=== PATIENT | female | born 1965 | race African-American/Black ===

== ENCOUNTER 2016-05-15 11:19 | Outpatient (CLI) ==
[2014-06-13 07:58] VITALS: BMI 35.4
--- NOTE | 2016-05-16 09:05 | MAMMO ---
EXAM: Digital screening mammogram HISTORY: Screening COMPARISON: 12/13/2014 and 06/07/2014 FINDINGS: Digital MLO and CC views of the right and left breast were performed. There are scatter ed fibroglandular densities. There is a 2.7 cm mass in the left lateral breast. There is a 1.3 cm mass in the right inferior medial breast. IMPRESSION: Bilateral breast masses. Diagnostic mammogram and ultrasound recommended for further evaluation. BIRADS category 0, incomplete
== END 2016-05-15 11:20 | disposition home or self-care (01) ==
LOC: RAD 11:19
PROVIDERS: ATTEND Obstetrics & Gynecology Obstetrics
DX: Z12.31 Encounter for screening mammogram for malignant neoplasm of breast (principal)

== ENCOUNTER 2016-05-21 08:52 | Outpatient (CLI) ==
[2014-06-13 07:58] VITALS: BMI 35.4
--- NOTE | 2016-05-21 09:34 | US ---
EXAM: Bilateral breast ultrasound. History: Bilateral breast masses. Comparison: Bilateral mammogram 05/15/2016 Technique: Multiple sonographic images through the bilateral breasts were obtained. Color duplex D oppler was used to interrogate vascular flow. Findings: 2.3 cm x 1.8 cm x 2.5 cm irregular spiculated mass within the left breast at 3 o'clock 9 cm from nip ple. Incidental 0.9 cm benign intramammary lymph node at 3 o'clock within the left breast. Just beneath the skin within the right breast at 4 o'clock 11 cm from nipple, there is a oval well c ircumscribed mass demonstrating posterior acoustic enhancement. Impression: 1. 2.5 cm spiculated left breast mass is suspicious for malignancy. Recommend ultrasound guided jeanette st biopsy. 2. Right breast mass just beneath the skin could represent a sebaceous cyst but given the findings on the other contralateral side would also be considered suspicious for malignancy. Recommend furth er evaluation with ultrasound guided breast biopsy BIRADS 5
== END 2016-05-21 08:53 | disposition home or self-care (01) ==
LOC: RAD 08:52
PROVIDERS: ATTEND Obstetrics & Gynecology Obstetrics
DX: N63 Unspecified lump in breast (principal)

== ENCOUNTER 2017-03-20 09:16 | Emergency (ER) ==
[2017-03-20 09:23] VITALS: BP 158/93; TEMP 97.8; BMI 32.5
--- NOTE | 2017-03-20 09:35 | ED.PDOC ---
General ED Provider: Dr. ESEQUIEL WILEY Chief Complaint: Wrist Pain/Injury Stated Complaint: wrist and and hand pain left sided Time Seen by Physician: 09:30 (this pain involves the left wrist pain) Mode of Arrival: Walk-In Information Source: Patient Exam Limitations: No limitations (no fall this is chronic issue ) Primary Care Provider: SANIYA COBOS Nursing and Triage Documentation Reviewed and Agree: Yes Reviewed sepsis parameters & appropriate labs ordered?: Yes System Inflammatory Response Syndrome: Not Applicable Sepsis Protocol: For patient's 13 years and over: Temp is 96.8 and below OR 101 and greater Pulse >90 BPM Resp >20/minute Acutely Altered Mental Status Are patient's symptoms suggestive of a new infection, such as: -Pneumonia -Skin, Soft Tissue -Endocarditis -UTI -Bone, Joint Infection -Implantable Device -Acute Abdominal Infection -Wound Infection -Meningitis -Blood Stream Catheter Infection -Unknown Review of Systems - Review Of Systems Constitutional: Reports: No symptoms Eyes: Reports: No symptoms Ears, Nose, Mouth, Throat: Reports: No symptoms Respiratory: Reports: No symptoms Cardiac: Reports: No symptoms GI: Reports: No symptoms : Reports: No symptoms Musculoskeletal: Reports: Joint pain (left wrist pain) Skin: Reports: No symptoms Neurological: Reports: No symptoms Endocrine: Reports: No symptoms Hematologic/Lymphatic: Reports: No symptoms All Other Systems: Reviewed and Negative Past Medical History - Past Medical History Previously Healthy: No Endocrine: Reports: None Cardiovascular: Reports: None Respiratory: Reports: None Hematological: Reports: None Gastrointestinal: Reports: None Genitourinary: Reports: None Neuro/Psych: Reports: None Musculoskeletal: Reports: None Cancer: Reports: Breast Last Menstrual Period: NA - Surgical History General Surgical History: Reports: None - Family History Family History: Reports: None - Social History Smoking Status: Never smoker Hx Substance Use: No Alcohol Screening: None - Immunizations Tetanus Shot up to Date: Yes Physical Exam - Physical Exam Appearance: Well-appearing, No pain distress, Well-nourished Eyes: GABBY, EOMI, Conjunctiva clear ENT: Ears normal, Nose normal, Oropharynx normal Respiratory: Airway patent, Breath sounds clear, Breath sounds equal, Respirations nonlabored Cardiovascular: RRR, Pulses normal, No rub, No murmur GI/: Soft, Nontender, No masses, Bowel sounds normal, No Organomegaly Musculoskeletal: Limited ROM (left thumb, sensation circulation is wnl) Skin: Warm, Dry, Normal color Neurological: Sensation intact, Motor intact, Reflexes intact, Cranial nerves intact, Alert, Oriented Psychiatric: Affect appropriate, Mood appropriate Critical Care Note - Critical Care Note Total Time (mins): 0 Course - Course Hematology/Chemistry: 03/20/17 10:43 Orders, Labs, Meds: Lab Review 03/20/17 10:43 Sodium 140 Potassium 4.1 Chloride 106 Carbon Dioxide 29 Anion Gap 9.1 BUN 10 Creatinine 0.68 Estimated GFR (MDRD) 110.00 BUN/Creatinine Ratio 14.70 Glucose 105 Calcium 9.5 Total Bilirubin 0.4 AST 13 L ALT 12 Alkaline Phosphatase 67 Total Protein 7.4 Albumin 3.7 Globulin 3.7 Albumin/Globulin Ratio 1.00 Orders Category Date Time Status NPO REMINDER: IMAGING ONCE CARE 03/20/17 10:18 Completed COMPREHENSIVE METABOLIC PANEL Stat LAB 03/20/17 10:43 Completed CTA ANGIO UPPER EXTREMITY Stat RADS 03/20/17 10:17 Completed HAND, LEFT 3 VIEWS Stat RADS 03/20/17 09:27 Completed WRIST, LEFT 3 VIEWS Stat RADS 03/20/17 09:27 Completed Vital Signs: Temp Pulse Resp BP Pulse Ox 03/20/17 09:19 97.8 F 78 18 158/93 H 100 Departure - Departure Time of Disposition: 12:49 Disposition: HOME SELF-CARE Discharge Problem: Pain in wrist, Wrist pain, left Instructions: Arthralgia (ED) Condition: Good Pt referred to PMD for follow-up: Yes Additional Instructions: Please call your Family Physician as soon as possible to schedule a follow-up appointment.WYATT Vazquez THUMB SPICA SPLINT ON FOLLOW UP WITH YOUR MD YOU NEED TO BE SEEN WITH A HAND /ORTHO MD. Prescriptions: Hydrocodone/Acetaminophen [Surprise 10-325 Tablet] 1 each PO Q8HR #12 tablet Allergies/Adverse Reactions: Allergies Penicillins Adverse Reaction (Verified 03/20/17 09:25) Sulfa (Sulfonamide Antibiotics) Adverse Reaction (Verified 03/20/17 09:25) YEAST Adverse Reaction (Uncoded 12/23/12 03:47) Home Medications: Ambulatory Orders Hydrocodone/Acetaminophen [Surprise 10-325 Tablet] 1 each PO Q8HR #12 tablet Disposition Discussed With: Patient
--- NOTE | 2017-03-20 10:03 | DI ---
Exam: Three x-rays of the left hand. Comparison: None available. Reason for exam: Pain. FINDINGS: No acute fracture or malalignment. The joint spaces are well maintained. No unexplained calcific soft tissue density or radiopaque retained foreign body. Impression: No acute fracture or malalignment in the left hand.
--- NOTE | 2017-03-20 10:03 | DI ---
Exam: Four x-rays of the left wrist. Comparison: None available. Reason for exam: Pain. FINDINGS: No acute fracture or malalignment. The joint spaces are well maintained. The scaphoid ap pears intact. No unexplained calcific soft tissue density or radiopaque retained foreign body. Impression: No acute fracture or malalignment is seen in the left wrist.
--- NOTE | 2017-03-20 12:47 | CT ---
EXAM: CT angiogram left upper extremity. HISTORY: Left wrist pain. Left arm swelling. Breast cancer status post bilateral mastectomy. COMPARISON: Radiographs earlier the same day. TECHNIQUE: Multiple axial images of the left upper extremity were obtainedfollowing intravenous admi nistration of 100 mL of Omnipaque 350, low osmolar. Multiplanar reformatted images and three -dimens ional reconstructed images were created on an independent workstation. FINDINGS: The aortic arch is widely patent without evidence for dissection or aneurysm. The origins of the great vessels are patent. The left subclavian artery, axillary artery, brachial artery are p atent. The proximal left radial artery and interosseous artery are patent. The arteries of the mid to distal forearm are not opacified, likely due to technical factors. No significant subcutaneous edema or fluid collections identified. No fracture or dislocation identified. Mastectomy changes noted. Probable seroma in the left breast. No lymphadenopathy identified. The l ungs are grossly clear. Right-sided chest port is present. Low density hepatic lesions are most lik grecia cysts. Lobular contour of the uterus is consistent with fibroids. No osteolytic or osteoblastic lesion is identified. Benign appearing mixed lytic and sclerotic lesion in the proximal left femur i s stable since 2009. IMPRESSION: Normal left upper extremity CT angiogram to the level of the proximal forearm. The mid to distal for earm arteries are not opacified which may be technical. Consider correlation with arterial Doppler o f the distal radial and ulnar arteries to confirm patency.
== END 2017-03-20 13:45 | disposition home or self-care (01) ==
LOC: ED 09:16
DX: M25.532 Pain in left wrist (principal); M79.642 Pain in left hand; G89.29 Other chronic pain
CPT/HCPCS: 36415; 80053; 99283

== ENCOUNTER 2017-08-24 11:47 | Emergency (ER) | payer MEDICAID, OTHER ==
[2017-08-24 11:54] VITALS: BP 156/101; TEMP 97.7; BMI 34.6
--- NOTE | 2017-08-24 12:24 | ED.PDOC ---
General ED Provider: Dr. GREG SANTORO-ER Chief Complaint: Toe Pain/Injury Stated Complaint: i cuaght my toe on baby walker Time Seen by Physician: 11:50 Mode of Arrival: Walk-In Information Source: Patient Exam Limitations: No limitations Primary Care Provider: HERB RHOADES Nursing and Triage Documentation Reviewed and Agree: Yes Reviewed sepsis parameters & appropriate labs ordered?: Yes System Inflammatory Response Syndrome: Not Applicable Sepsis Protocol: For patient's 13 years and over: Temp is 96.8 and below OR 101 and greater Pulse >90 BPM Resp >20/minute Acutely Altered Mental Status Are patient's symptoms suggestive of a new infection, such as: -Pneumonia -Skin, Soft Tissue -Endocarditis -UTI -Bone, Joint Infection -Implantable Device -Acute Abdominal Infection -Wound Infection -Meningitis -Blood Stream Catheter Infection -Unknown Musculoskeletal Complaint Exam - Ankle/Foot Complaint/Exam Location of Injury: Reports: Right, Toe #5 Mechanism of Injury: Reports: Trauma Onset/Duration: 30 min Symptoms Are: Reports: Still present Onset of Pain: Reports: Immediate Initial Severity: Mild Current Severity: Mild Location: Reports: Discrete Character: Reports: Dull, Aching Alleviating: Reports: Rest, Position Aggravating: Reports: Movement, Weight bearing Able to Bear Weight: No Associated Signs and Symptoms: Reports: Swelling Lower Extremity Findings: Present: Swelling, Tenderness Achilles Tendon Abnormality: No Tenderness: Present: Digits Differential Diagnosis: Contusion, Closed Fracture, Sprain, Strain Review of Systems - Review Of Systems Constitutional: Reports: No symptoms Eyes: Reports: No symptoms Ears, Nose, Mouth, Throat: Reports: No symptoms Respiratory: Reports: No symptoms Cardiac: Reports: No symptoms GI: Reports: No symptoms : Reports: No symptoms Musculoskeletal: Reports: No symptoms Skin: Reports: No symptoms Neurological: Reports: No symptoms Endocrine: Reports: No symptoms Hematologic/Lymphatic: Reports: No symptoms All Other Systems: Reviewed and Negative Past Medical History - Past Medical History Previously Healthy: No Endocrine: Reports: None Cardiovascular: Reports: None Respiratory: Reports: None Hematological: Reports: None Gastrointestinal: Reports: None Genitourinary: Reports: None Neuro/Psych: Reports: None Musculoskeletal: Reports: None Cancer: Reports: Breast Last Menstrual Period: post menopausal, tubal - Surgical History General Surgical History: Reports: None - Family History Family History: Reports: None - Social History Smoking Status: Never smoker Hx Substance Use: No Alcohol Screening: None Physical Exam - Physical Exam Appearance: Well-appearing, No pain distress, Well-nourished Pain Distress: Mild Eyes: GABBY ENT: Ears normal, Nose normal, Oropharynx normal Neck: Supple Respiratory: Airway patent, Breath sounds clear, Breath sounds equal, Respirations nonlabored Cardiovascular: RRR, Pulses normal, No rub, No murmur GI/: Soft, Nontender, No masses, Bowel sounds normal, No Organomegaly Musculoskeletal: Normal strength, No edema, No calf tenderness, Limited ROM Skin: Warm Neurological: Sensation intact, Motor intact, Reflexes intact, Cranial nerves intact, Alert, Oriented Psychiatric: Affect appropriate Interpretation - Radiology Interpretation Radiology Interpretation By: ED Physician Radiology Results: Negative Critical Care Note - Critical Care Note Total Time (mins): 0 Course - Course Orders, Labs, Meds: Orders Category Date Time Status TOE(S), RIGHT MIN 2V Stat RADS 08/24/17 11:57 Taken Vital Signs: Temp Pulse Resp BP Pulse Ox 08/24/17 11:48 97.7 F 79 20 156/101 H 98 Departure - Departure Time of Disposition: 12:24 Disposition: HOME SELF-CARE Discharge Problem: Pain in toe, Injury of toe Instructions: Foot Contusion (ED) Condition: Good Pt referred to PMD for follow-up: Yes IPMP verified?: No Additional Instructions: tyelnol for pain--ice and elevation--rexray in a few days if not better Allergies/Adverse Reactions: Allergies Penicillins Adverse Reaction (Verified 08/24/17 11:53) Sulfa (Sulfonamide Antibiotics) Adverse Reaction (Verified 08/24/17 11:53) YEAST Adverse Reaction (Uncoded 12/23/12 03:47) Home Medications: Ambulatory Orders Hydrocodone/Acetaminophen [Delta 10-325 Tablet] 1 each PO Q8HR #12 tablet Losartan Potassium [Cozaar] 50 mg PO DAILY 08/24/17 Pregabalin [Lyrica] 100 mg PO BID 08/24/17 Disposition Discussed With: Patient, Family
--- NOTE | 2017-08-25 15:10 | DI ---
EXAM: Right toes three-view HISTORY: Injury COMPARISON: None FINDINGS: The bones are normal. The joints are normal. No focal soft tissue abnormality. IMPERSSION: Normal examination.
== END 2017-08-24 13:00 | disposition home or self-care (01) ==
LOC: ED 11:47
DX: S99.921A Unspecified injury of right foot, initial encounter (principal); W22.8XXA Striking against or struck by other objects, initial encounter
CPT/HCPCS: 99283

== ENCOUNTER 2017-08-30 08:18 | Outpatient (CLI) | END 2017-08-30 08:19 | disposition home or self-care (01) | LOC: CAR 08:18 | PROVIDERS: ATTEND Physician Assistant | DX: I10 Essential (primary) hypertension (principal) | CPT/HCPCS: 93005; 93010 ==

== ENCOUNTER 2018-04-29 08:18 | Outpatient (CLI) ==
--- NOTE | 2018-04-29 08:44 | DI ---
EXAM: RIGHT KNEE. HISTORY: Neck pain. FINDINGS: Right knee three-view. Joints proper are within normal limits. There is early enthesopat hy of the superior superficial patella with minimal spurring currently seen. There is no fracture, o steochondral fragmentation or joint effusion. IMPRESSION: 1. Early spurring of the upper anterior patellar body.
== END 2018-04-29 08:19 | disposition home or self-care (01) ==
LOC: RAD 08:18
PROVIDERS: ATTEND Nurse Practitioner Family
DX: M25.561 Pain in right knee (principal)

== ENCOUNTER 2018-08-20 12:14 | Outpatient (CLI) ==
--- NOTE | 2018-08-20 16:20 | DI ---
EXAM: RIGHT ANKLE THREE VIEWS HISTORY: Ankle pain FINDINGS: Nonstandard patient positioning limits the exam although there is no evidence of fracture or dislocation. No joint effusion or soft tissue finding. IMPRESSION: 1. No fracture identified.
--- NOTE | 2018-08-20 19:43 | DI ---
EXAM: Right foot three views HISTORY: Right foot pain COMPARISON: 12/02/2017 FINDINGS/IMPRESSION: Remodeling changes in the distal aspect of the proximal phalanx fifth digit due to healing changes from remote fracture. Small plantar calcaneal spur. Joint spaces maintained. N o focal soft tissue abnormality.
== END 2018-08-20 12:15 | disposition home or self-care (01) ==
LOC: RAD 12:14
PROVIDERS: ATTEND Nurse Practitioner Family
DX: M25.571 Pain in right ankle and joints of right foot (principal)